=== PATIENT | female | born 1990 | race Caucasian/White ===

== ENCOUNTER → 2018-05-09 | Outpatient (CLI) | payer BC, OTHER ==
[2018-05-09 09:49] LABS: HEMOGLOBIN 10.6 G/DL (11.5-16.0)
== END ==
LOC: LAB 09:25
PROVIDERS: ATTEND Obstetrics & Gynecology
DX: Z34.02 Encounter for supervision of normal first pregnancy, second trimester (principal); Z36.89 Encounter for other specified antenatal screening
CPT/HCPCS: 36415; 82951; 82962; 85014; 85018

== ENCOUNTER 2018-08-07 19:11 | Inpatient (IN) | payer OTHER ==
[~2018-08-07] VITALS: Ht 160 cm; Wt 68.7 kg
--- NOTE | 2018-08-07 19:00 | NUR ---
CHRISTINE THOMPSON presented to unit via ambulation from home, accompanied by SO, for INDUCTION. CHRISTINE THOMPSON weighed, gowned, voided, and to bed. EFHM and TOCO applied, VS taken. CHRISTINE THOMPSON oriented to bed controls, call light, TV, heat, and A/C controls.
--- NOTE | 2018-08-07 19:17 | NUR ---
Dr. Montilla notified of pt. arrival and orders received.
[2018-08-07] MEDS ORDERED: ACYC400T PO (19:34)
[2018-08-07] MEDS ORDERED: PREN-53 PO (19:34)
[2018-08-07] MEDS ORDERED: LACTATED RINGERS 1,000 ML IV SCH (19:39)
[2018-08-07] MEDS ORDERED: D5 LR IV SOLUTION 1,000 ML IV ONE (19:41)
[2018-08-07] MEDS ORDERED: MINERAL OIL CONCENTRATE 99.9% 15 ML UDC TOP PRN (19:45)
[2018-08-07] MEDS ORDERED: MISOPROSTOL 100 MCG (CYTOTEC) TAB PO NR (19:45)
[2018-08-07 19:50] VITALS: BP 113/69
[2018-08-07] MEDS ORDERED: LACTATED RINGERS 1,000 ML IV ONE (19:57)
[2018-08-07] MEDS: D5 LR IV SOLUTION 1,000 ML IV SCH (19:59)
[2018-08-07 20:14] LABS: BASOPHILS % (AUTO) 0 % (0-10); EOSINOPHILS # (AUTO) 0.1 10^3/uL (0.0-0.3); EOSINOPHILS % (AUTO) 1 % (0-10); HEMATOCRIT 33 % (35-52); HEMOGLOBIN 11.4 G/DL (11.5-16.0); LYMPHOCYTES # (AUTO) 1.7 X 10^3 (1.0-4.0); LYMPHOCYTES % (AUTO) 12 % (12-44); MEAN CORPUSCULAR HEMOGLOBIN 32 PG (25-34); MEAN CORPUSCULAR HGB CONC 35 G/DL (32-36); MEAN CORPUSCULAR VOLUME 94 FL (80-99); MEAN PLATELET VOLUME 10.1 FL (7.4-10.4); MONOCYTES # (AUTO) 1.3 X 10^3 (0.0-1.0); MONOCYTES % (AUTO) 9 % (0-12); NEUTROPHILS % (AUTO) 77 % (42-75); PLATELET COUNT 210 10^3/uL (130-400); RED CELL DISTRIBUTION WIDTH 13.8 % (10.0-14.5); WHITE BLOOD COUNT 14.2 10^3/uL (4.3-11.0)
[2018-08-07 20:22] VITALS: BP 138/76
[2018-08-07 21:30] VITALS: BP 107/58
[2018-08-07 22:30] VITALS: BP 97/52
[2018-08-08] VITALS (55 sets, daily range): BP systolic 103–140; BP diastolic 53–100
--- NOTE | 2018-08-08 00:20 | NUR ---
Dr. Montilla notified of contraction pattern and next dose of cytotec due at this time. Orders received to hold further cytotec doses and Dr. Montilla will call in the morning to check on pt and give new orders.
[2018-08-08] MEDS: MISOPROSTOL 100 MCG (CYTOTEC) TAB PO SCH ×2 (00:27→05:10)
[2018-08-08] MEDS: D5 LR IV SOLUTION 1,000 ML IV SCH ×2 (03:24→11:20)
[2018-08-08] MEDS ORDERED: OXYTOCIN/NORMAL SALINE 500 ML IV SCH (06:07)
[2018-08-08] MEDS ORDERED: ONDANSETRON 4 MG/2 ML (SDV) Z0FRAN IVP PRN (06:15)
--- NOTE | 2018-08-08 07:15 | History & Physical-OB ---
OB - Chief Complaint & HPI Date/Time Date of Admission: Date of Admission: Aug 07, 2018 at 19:11 Date seen by a Provider: Aug 08, 2018 Time Seen by a Provider: 07:00 Chief Complaint/History OB-Reason for Admission/Chief: Induction of Labor Hx : 1 Hx Para: 0 Expected Date of Delivery: Jul 17, 2019 Gestational Age in Weeks: 38 Gestational Age in Days: 6 Admission Nurse Assessment Rev: Yes History of Labs O pos Antibody neg RI RPR NR HBsAg NR HIV NR GC neg GBS neg Allergies and Home Medications Allergies Coded Allergies: No Known Drug Allergies (Unverified , 08/07/18) Home Medications Acyclovir 400 Mg Tablet, 400 MG PO TID, (Reported) Ymc192/Iron Fumarate/FA/Dss 1 Each Tablet, 1 EACH PO DAILY, (Reported) Patient Home Medication List Home Medication List Reviewed: Yes OB - History Hx of Present Care: Yes Ultrasounds: Normal mid trimester US Obstetrical Complications: None Medical Complications: None Patient Past Medical History n/a Social History/Family History Alcohol Use: Denies Use Recreational Drug Use: No OB - Admission Exam Physical Exam Vitals: Vital Signs 08/08/18 04:00 Temp 97.8 Pulse 69 Resp 16 B/P (MAP) 129/63 (85) O2 Delivery Room Air HEENT: NCAT Heart: Rhythm Normal Lungs: Clear Abdomen: Gravid Extremities: Normal Reflexes: Normal Cervical Dilatation: 3cm Effacement: 75% Station: -1 Membranes: Intact Heart Rate: 130's Accelerations: Accelerations Present Decelerations: No Decelerations Short Term Variability: Present Museum Guide Variability: Average (6-25) Contractions on Admission: 6-10 Minutes Apart Labs Laboratory Tests Test 08/07/18 19:55 Range/Units White Blood Count 14.2 H 4.3-11.0 10^3/uL Red Blood Count 3.52 L 4.35-5.85 10^6/uL Hemoglobin 11.4 L 11.5-16.0 G/DL Hematocrit 33 L 35-52 % Mean Corpuscular Volume 94 80-99 FL Mean Corpuscular Hemoglobin 32 25-34 PG Mean Corpuscular Hemoglobin Concent 35 32-36 G/DL Red Cell Distribution Width 13.8 10.0-14.5 % Platelet Count 210 130-400 10^3/uL Mean Platelet Volume 10.1 7.4-10.4 FL Neutrophils (%) (Auto) 77 H 42-75 % Lymphocytes (%) (Auto) 12 12-44 % Monocytes (%) (Auto) 9 0-12 % Eosinophils (%) (Auto) 1 0-10 % Basophils (%) (Auto) 0 0-10 % Neutrophils # (Auto) 11.0 H 1.8-7.8 X 10^3 Lymphocytes # (Auto) 1.7 1.0-4.0 X 10^3 Monocytes # (Auto) 1.3 H 0.0-1.0 X 10^3 Eosinophils # (Auto) 0.1 0.0-0.3 10^3/uL Basophils # (Auto) 0.0 0.0-0.1 10^3/uL OB - Assessment/Plan/Diagnosis Assessment Assessment: induction of labor Admission Dx 28 yo @ 39 weeks Elective induction GBS neg Admission Status: Inpatient Order (span 2 midnights) Reason for Inpatient Admission: Induction of labor 39 weeks Plan Plan: Induction Induction Method: per Misoprostol Protocol RAMONA MOE DO Aug 08, 2018 07:15
[2018-08-08] MEDS ORDERED: SUFENTA 0.6MCG/ML BUPIVA 0.125 100 ML ONE (07:28)
--- NOTE | 2018-08-08 07:55 | NUR ---
Yonny Simpson CRNA here for epidural placement. Procedure explained, consent reviewed and signed by anesthesia. Questions answered to patient's satisfaction. Time out taken to verify correct patient/procedure. Patient up to side of bed, assisted into sitting position. Betadine prep done x3 and sterile drape applied. Local done, see anesthesia record. Test dose given, see anesthesia record for drug and dosage. Epidural catheter secured in place. Epidural placement complete. Assisted back into bed, monitors adjusted. Epidural dosed, see anesthesia record. Epidural of Sufenta/Bupvicaine @12cc/hr stated per pump. Patient tolerated procedure well.
[2018-08-08] MEDS ORDERED: LACTATED RINGERS 1,000 ML IV SCH (08:26)
[2018-08-08] MEDS ORDERED: diphenhydrAMINE 50 MG/ML INJ (BENADRYL) IV PRN (08:30)
[2018-08-08] MEDS ORDERED: EPIDURAL (SUFENTA 0.6MCG/ML BUPIVA 0.125%) 100 ML BAG EPI SCH (08:30)
[2018-08-08] MEDS ORDERED: METOCLOPRAMIDE INJ 10 MG/2 ML (REGLAN) IV PRN (08:30)
[2018-08-08] MEDS ORDERED: ONDANSETRON 4 MG/2 ML (SDV) Z0FRAN IV PRN (08:30)
[2018-08-08] MEDS ORDERED: NALOXONE 0.4 MG/ML 1 ML (NARCAN) VIAL IV PRN ×2 (08:30)
[2018-08-08] MEDS ORDERED: LIDOCAINE/EPI 2% 1:200,00 (XYLOCAINE) 10 ML VIAL ONE (13:02)
[2018-08-08] MEDS: OXYTOCIN/NORMAL SALINE 500 ML IV SCH ×2 (14:47→17:07)
[2018-08-08] MEDS ORDERED: WITCH HAZEL(TUCKS) 40 EA JAR TOP PRN (15:15)
[2018-08-08] MEDS ORDERED: BENZOCAINE/MENTHOL (DERMOPLAST) 56 ML CAN TP PRN (15:15)
[2018-08-08] MEDS: IBUPROFEN 600 MG (MOTRIN) TAB PO SCH ×2 (15:25→21:06)
--- NOTE | 2018-08-08 17:21 | OB Labor & Delivery Record ---
L&D History Date of Service Date of Service: Aug 08, 2018 History Expected Date of Delivery: Jul 17, 2019 Gestational Age in Weeks: 39 Hx : 1 Hx Para: 0 Complications Events: Routine care Operative Indications (Cesarea: N/A-Vaginal Delivery Intrapartal Events: None L&D Stage1 Stage One Onset of Labor - Date: Aug 08, 2018 Monitors and Tracing Monitor Mode: External Heart Rate: 150 Station: 0 Vital Signs VS - Last 72 Hours, by Label 08/07/18 08/07/18 08/07/18 08/07/18 19:50 20:22 21:30 22:30 Temp 99.4 Pulse 107 88 83 74 Resp 18 18 16 16 B/P (MAP) 113/69 (84) 138/76 (96) 107/58 (74) 97/52 (67) O2 Delivery Room Air Room Air Room Air Room Air 08/08/18 08/08/18 08/08/18 08/08/18 00:20 01:50 04:00 05:20 Temp 98.1 97.8 Pulse 81 78 69 68 Resp 16 16 16 16 B/P (MAP) 122/76 (91) 117/61 (79) 129/63 (85) 123/74 (90) O2 Delivery Room Air Room Air Room Air Room Air 08/08/18 08/08/18 08/08/18 08/08/18 05:50 06:40 06:55 07:10 Temp 98.2 Pulse 75 89 77 80 Resp 16 16 16 20 B/P (MAP) 124/68 (86) 127/86 (100) 126/84 (98) 133/100 (111) O2 Delivery Room Air Room Air Room Air Room Air 08/08/18 08/08/18 08/08/18 08/08/18 07:25 07:40 07:55 08:10 Pulse 77 73 74 77 Resp 20 20 20 20 B/P (MAP) 128/79 (95) 129/76 (93) 122/68 (86) 129/68 (88) O2 Delivery Room Air Room Air Room Air Room Air 08/08/18 08/08/18 08/08/18 08/08/18 08:15 08:18 08:21 08:24 Pulse 78 82 78 86 Resp 20 20 20 20 B/P (MAP) 121/63 (82) 119/65 (83) 122/58 (79) 107/62 (77) O2 Delivery Room Air Room Air Room Air Room Air 08/08/18 08/08/18 08/08/18 08/08/18 08:27 08:30 08:33 08:36 Pulse 71 68 77 69 Resp 20 20 20 20 B/P (MAP) 107/66 (80) 109/67 (81) 109/67 (81) 109/62 (78) O2 Delivery Room Air Room Air Room Air Room Air 08/08/18 08/08/18 08/08/18 08/08/18 08:39 08:42 08:45 08:48 Pulse 77 76 73 69 Resp 20 20 20 20 B/P (MAP) 105/59 (74) 109/60 (76) 111/63 (79) 106/60 (75) O2 Delivery Room Air Room Air Room Air Room Air 08/08/18 08/08/18 08/08/18 08/08/18 08:55 09:00 09:15 09:30 Temp 98.8 98.4 Pulse 76 75 69 75 Resp 18 20 20 20 B/P (MAP) 106/60 (75) 117/70 (86) 112/64 (80) 116/70 (85) O2 Delivery Room Air Room Air Room Air Room Air 08/08/18 08/08/18 08/08/18 08/08/18 09:45 10:00 10:15 10:30 Pulse 77 71 72 71 Resp 20 20 20 20 B/P (MAP) 107/60 (76) 120/75 (90) 117/69 (85) 113/68 (83) O2 Delivery Room Air Room Air Room Air Room Air 08/08/18 08/08/18 08/08/18 08/08/18 10:45 11:00 11:15 11:30 Temp 99.1 Pulse 71 68 74 72 Resp 20 18 18 18 B/P (MAP) 113/70 (84) 114/61 (78) 116/77 (90) 118/78 (91) O2 Delivery Room Air Room Air Room Air Room Air 08/08/18 08/08/18 08/08/18 08/08/18 11:45 12:00 12:15 12:30 Pulse 73 122 79 71 Resp 18 18 18 18 B/P (MAP) 118/77 (91) 138/76 (96) 116/71 (86) 111/59 (76) O2 Delivery Room Air Room Air Room Air Room Air 08/08/18 08/08/18 08/08/18 08/08/18 12:45 13:00 13:15 13:30 Pulse 90 86 77 84 Resp 18 18 18 18 B/P (MAP) 128/82 (97) 138/89 (105) 127/78 (94) 124/77 (93) O2 Delivery Non Rebreather Non Rebreather Non Rebreather Non Rebreather O2 Flow Rate 10.00 10.00 10.00 10.00 08/08/18 08/08/18 08/08/18 08/08/18 13:45 14:13 14:29 14:44 Temp 98.5 Pulse 108 83 88 78 Resp 18 18 18 18 B/P (MAP) 140/90 (107) 120/71 (87) 116/74 (88) 108/69 (82) O2 Delivery Non Rebreather Room Air Room Air Room Air O2 Flow Rate 10.00 08/08/18 08/08/18 08/08/18 08/08/18 14:58 15:14 15:29 15:44 Pulse 64 78 72 71 Resp 18 18 18 18 B/P (MAP) 115/56 (75) 119/72 (88) 130/53 (78) 131/59 (83) O2 Delivery Room Air Room Air Room Air Room Air 08/08/18 08/08/18 15:59 16:13 Temp 99.0 Pulse 78 60 Resp 18 18 B/P (MAP) 111/56 (74) 103/58 (73) O2 Delivery Room Air Room Air Rupture of Membranes Spontaneous Ruture of Membrane: Yes Amniotic Membrane Rupture Time: 0545 Amniotic Membrane Fluid Desc.: Clear Vaginal Bleeding Description: Normal Show Induction/Anesthesia Epidural Cath Placement - Time: 0809 Progress/Notes Pitocin augmentation started after SROM this AM at 0700. She progressed after epidural was placed to complete and +1 STATION L&D Stage2 Stage Two Stage II Date: Aug 08, 2018 Monitors and Tracing Monitor Mode: External Heart Rate: 150 Short Term Variability: Present Position: Right Occiput Anterior Presentation: Vertex Cord Descript/Complications Cord Vessel Description: 3 Vessels Complications nuchal cord x 1 Delivery Type Infant Delivery Method: Spontaneous Vaginal Anterior Shoulder: Right Episiotomy/Perineal Laceration Laceraction(s)/Extensions: Yes Episiotomy Description: Midline Degree (describe repair) midline episiotomy repaired using 3-0 and 2-0 vicryl suture. Condition of Delivery 1 minute Comment: 8 5 minute Comment: 9 Notes Live female weight 7lbs 9 oz. Condition of Condition of Infant: Living Exam: No Observed Abnormalities Resuscitation Resuscitation: N/A - Spontaneous Resp L&D Stage3 Stage Three Stage III Date: Aug 08, 2018 Pictocin Pitocin Administration mu/min: 8 Pitocin ml/hr: 8 Pitocin Administration Comment: 30 mu wide open at delivery of placenta Placenta Delivery Placenta Delivery: Spontaneous Delivery Summary Summary Estimated blood loss (mL): 350 Attending at delivery: Ramona Moe DO Condition of Delivery Examined: Cervix Examined, Uterus Explored Post Hemorrhage: No Condition of Mother stable Condition of (s) stable RAMONA MOE DO Aug 08, 2018 17:21
--- NOTE | 2018-08-08 17:22 | Discharge Inst-Women's Service ---
Discharge Inst-Women's Serv Depart Medication/Instructions New, Converted or Re-Newed RX: RX on Chart Final Diagnosis PPD 1 NVD Consults/Follow Up Additional Follow Up: Yes Orders/Referrals Dr. Moe in 6 weeks Activity Activity: Activity as Tolerated Driving Instructions: No Driving for 1 Week NO SMOKING: NO SMOKING Nothing Inside Vagina: No Douching, No [address], No Tampons Diet Discharge Diet: No Restrictions Symptoms to Report to : Bleeding Excessive, Pain Increased, Fever Over 101 Degrees F, Vaginal Bleeding Increase, Questions/Concerns For Any Problems or Questions: Contact Your Physician RAMONA MOE DO Aug 08, 2018 17:22
[2018-08-08] MEDS ORDERED: Benzocaine/Menthol TP (17:24)
[2018-08-08] MEDS ORDERED: IBUP-844 PO (17:24)
[2018-08-08] MEDS ORDERED: FERR325T18 PO (17:24)
[2018-08-08] MEDS ORDERED: DOCU100C37 PO (17:24)
--- NOTE | 2018-08-08 18:30 | NUR ---
FFU/2, light rubra lochia noted, no clots expressed. Pericare performed. Fresh vpad, underwear applied. Ice pack to perineum. Pt assisted to wheelchair. Pt moved along with all personal belongings to PP room 308 via wheelchair, accompanied by S.O. RN and . Pt and S.O. oriented to room and call light, packet explained. Pt reports need to void at this time. Pt assisted to bathroom, +void. Pericare demonstrated with tucks/dermoplast. Pt back to bed without incident. Linens provided to S.O. for couch. Pt and S.O. deny needs or concerns at this time.
[2018-08-08] MEDS: DOCUSATE SODIUM 100 MG (COLACE) CAP PO SCH (21:06)
[2018-08-09 02:57] VITALS: BP 116/70
[2018-08-09] MEDS: IBUPROFEN 600 MG (MOTRIN) TAB PO SCH ×4 (02:57→21:24)
[2018-08-09 05:45] VITALS: BP 99/65
[2018-08-09] MEDS: ACETAMINOPHEN 500 MG TAB (TYLENOL) PO SCH ×3 (05:46→19:51)
[2018-08-09 06:48] LABS: BASOPHILS % (AUTO) 0 % (0-10); EOSINOPHILS # (AUTO) 0.1 10^3/uL (0.0-0.3); EOSINOPHILS % (AUTO) 1 % (0-10); HEMATOCRIT 27 % (35-52); LYMPHOCYTES # (AUTO) 1.3 X 10^3 (1.0-4.0); LYMPHOCYTES % (AUTO) 9 % (12-44); MEAN CORPUSCULAR HGB CONC 34 G/DL (32-36); MEAN CORPUSCULAR VOLUME 96 FL (80-99); MONOCYTES # (AUTO) 1.2 X 10^3 (0.0-1.0); MONOCYTES % (AUTO) 8 % (0-12); NEUTROPHILS # (AUTO) 12.2 X 10^3 (1.8-7.8); NEUTROPHILS % (AUTO) 82 % (42-75); PLATELET COUNT 169 10^3/uL (130-400); WHITE BLOOD COUNT 14.9 10^3/uL (4.3-11.0)
[2018-08-09 06:50] LABS: MEAN CORPUSCULAR HEMOGLOBIN 32 PG (25-34)
--- NOTE | 2018-08-09 08:37 | Postpartum Progress Note ---
Note Note Day # 1 Subjective: Patient is without complaints. Ambulating, voiding. Tolerating a regular diet without nausea or vomiting. Normal lochia. Pain is well controlled with oral pain medications. Objective: Physical Exam: General - Alert and oriented, no apparent distress Abdomen - Soft, appropriately tender to palpation, non-distended, fundus firm at umbilicus Extremities - no edema, negative Narayan's bilaterally Assessment: PPD 1 NVD Acute blood loss anemia Plan: Routine care. Encourage breast feeding. Encourage ambulation. Ferrous sulfate supplementation. Plan for discharge today Vitals - Labs Vital Signs - I&O Vital Signs Date Time Temp Pulse Resp B/P (MAP) Pulse Ox O2 Delivery O2 Flow Rate FiO2 08/09/18 05:45 98.2 73 18 99/65 (76) 99 08/09/18 02:57 97.9 80 16 116/70 (85) 100 08/08/18 21:05 98.4 72 18 104/68 (80) 99 08/08/18 16:13 60 18 103/58 (73) Room Air 08/08/18 15:59 99.0 78 18 111/56 (74) Room Air 08/08/18 15:44 71 18 131/59 (83) Room Air 08/08/18 15:29 72 18 130/53 (78) Room Air 08/08/18 15:14 78 18 119/72 (88) Room Air 08/08/18 14:58 64 18 115/56 (75) Room Air 08/08/18 14:44 78 18 108/69 (82) Room Air 08/08/18 14:29 98.5 88 18 116/74 (88) Room Air 08/08/18 14:13 83 18 120/71 (87) Room Air 08/08/18 13:45 108 18 140/90 (107) Non Rebreather 10.00 08/08/18 13:30 84 18 124/77 (93) Non Rebreather 10.00 08/08/18 13:15 77 18 127/78 (94) Non Rebreather 10.00 08/08/18 13:00 86 18 138/89 (105) Non Rebreather 10.00 08/08/18 12:45 90 18 128/82 (97) Non Rebreather 10.00 08/08/18 12:30 71 18 111/59 (76) Room Air 08/08/18 12:15 79 18 116/71 (86) Room Air 08/08/18 12:00 122 18 138/76 (96) Room Air 08/08/18 11:45 73 18 118/77 (91) Room Air 08/08/18 11:30 72 18 118/78 (91) Room Air 08/08/18 11:15 99.1 74 18 116/77 (90) Room Air 08/08/18 11:00 68 18 114/61 (78) Room Air 08/08/18 10:45 71 20 113/70 (84) Room Air 08/08/18 10:30 71 20 113/68 (83) Room Air 08/08/18 10:15 72 20 117/69 (85) Room Air 08/08/18 10:00 71 20 120/75 (90) Room Air 08/08/18 09:45 77 20 107/60 (76) Room Air 08/08/18 09:30 75 20 116/70 (85) Room Air 08/08/18 09:15 98.4 69 20 112/64 (80) Room Air 08/08/18 09:00 75 20 117/70 (86) Room Air 08/08/18 08:55 98.8 76 18 106/60 (75) Room Air 08/08/18 08:48 69 20 106/60 (75) Room Air 08/08/18 08:45 73 20 111/63 (79) Room Air 08/08/18 08:42 76 20 109/60 (76) Room Air 08/08/18 08:39 77 20 105/59 (74) Room Air 08/08/18 08:36 69 20 109/62 (78) Room Air I & O 08/09/18 07:00 Intake Total 2400 ml Balance 2400 ml Labs Laboratory Tests 08/09/18 06:27: White Blood Count 14.9H, Red Blood Count 2.77L, Hemoglobin 9.0#L, Hematocrit 27L , Mean Corpuscular Volume 96, Mean Corpuscular Hemoglobin 32, Mean Corpuscular Hemoglobin Concent 34, Red Cell Distribution Width 14.0, Platelet Count 169, Mean Platelet Volume 10.0, Neutrophils (%) (Auto) 82H, Lymphocytes (%) (Auto) 9L , Monocytes (%) (Auto) 8, Eosinophils (%) (Auto) 1, Basophils (%) (Auto) 0, Neutrophils # (Auto) 12.2H, Lymphocytes # (Auto) 1.3, Monocytes # (Auto) 1.2H, Eosinophils # (Auto) 0.1, Basophils # (Auto) 0.0 RAMONA MOE DO Aug 09, 2018 08:37
--- NOTE | 2018-08-09 08:43 | Anesthesia-Regional Post-Op ---
Regional Patient Condition Mental Status: Alert, Oriented x3 Circulation: Same as Pre-Op Headache: Absent Sensation: Full Recovery Motor Block: Absent Post Op Complications Complications None Follow Up Care/Instructions Patient Instructions None needed. Anesthesia/Patient Condition Patient is doing well, no complaints, stable vital signs, no apparent adverse anesthesia problems. No complications reported per nursing. [place] home [place] [facility] [place]: Yes MERY ALCALA CRNA Aug 09, 2018 08:43
[2018-08-09 08:53] VITALS: BP 102/58
[2018-08-09] MEDS: DOCUSATE SODIUM 100 MG (COLACE) CAP PO SCH ×2 (08:55→21:25)
[2018-08-09] MEDS: FERROUS SULF 325 MG (IRON) TAB PO SCH (08:55)
[2018-08-09] MEDS: PRENATAL VITAMIN 1 EA TAB PO SCH (08:55)
--- NOTE | 2018-08-09 08:55 | NUR ---
Dr Montilla here to see pt, D/C orders rec'd as long as can go too. Keep overnight if baby is not dismissed.
[2018-08-09 13:35] VITALS: BP 89/52
[2018-08-09 15:30] VITALS: BP 98/61
[2018-08-09 19:50] VITALS: BP 130/75
[2018-08-10 00:15] VITALS: BP 91/52
[2018-08-10] MEDS: IBUPROFEN 600 MG (MOTRIN) TAB PO SCH ×3 (04:08→15:08)
[2018-08-10] MEDS: ACETAMINOPHEN 500 MG TAB (TYLENOL) PO SCH ×2 (04:09→15:08)
[2018-08-10 04:10] VITALS: BP 102/59
--- NOTE | 2018-08-10 07:46 | Postpartum Progress Note ---
Note Note Day # 2 Subjective: Patient is without complaints. Ambulating, voiding. Tolerating a regular diet without nausea or vomiting. Normal lochia. Pain is well controlled with oral pain medications. Objective: Physical Exam: General - Alert and oriented, no apparent distress Abdomen - Soft, appropriately tender to palpation, non-distended, fundus firm at umbilicus Extremities - no edema, negative Narayan's bilaterally Assessment: PPD 2 NVD Plan: Routine care. Encourage breast feeding. Encourage ambulation. Ferrous sulfate supplementation. Plan for discharge today Vitals - Labs Vital Signs - I&O Vital Signs Date Time Temp Pulse Resp B/P (MAP) Pulse Ox O2 Delivery O2 Flow Rate FiO2 08/10/18 04:10 98.4 70 14 102/59 (73) 99 Room Air 08/10/18 00:15 98.1 70 14 91/52 (65) 98 Room Air 08/09/18 19:50 97.7 78 18 130/75 (93) 100 Room Air 08/09/18 15:30 98.2 74 18 98/61 (73) 99 Room Air 08/09/18 13:35 98.4 78 18 89/52 (64) 99 Room Air 08/09/18 08:53 98.1 88 18 102/58 (73) 99 Room Air RAMONA MOE DO Aug 10, 2018 07:46
--- NOTE | 2018-08-10 09:07 | NUR ---
up to shower.
[2018-08-10] MEDS: DOCUSATE SODIUM 100 MG (COLACE) CAP PO SCH (09:23)
[2018-08-10] MEDS: FERROUS SULF 325 MG (IRON) TAB PO SCH (09:23)
[2018-08-10] MEDS: PRENATAL VITAMIN 1 EA TAB PO SCH (09:23)
[2018-08-10 09:25] VITALS: BP 113/70
--- NOTE | 2018-08-10 09:25 | NUR ---
initial shift assessment completed, see interventions for further. POC reviewed, states understanding.
--- NOTE | 2018-08-10 14:27 | NUR ---
called into pt's room. c/o back itching. red, raised rash noted around epidural site. pt's mother requesting medication. was called r/t pt's c/o. order received for Hydrocortisone cream.
[2018-08-10] MEDS ORDERED: HYDROCORTISONE 2.5% CREAM (ANUSOL-HC) 30 GM TOP SCH (14:30)
--- NOTE | 2018-08-10 15:06 | NUR ---
dismissal instructions given, verbalizes understanding. reviewed follow up appointment and medications. signature page signed, placed on chart.
[2018-08-10 15:15] VITALS: BP 116/69
--- NOTE | 2018-08-10 15:35 | NUR ---
pt ambulated to private vehicle with this RN, mother and infant @ side. infant secured in rear facing car seat. pt stable upon dismissal.
== END 2018-08-10 15:35 | disposition home or self-care (01) | DRG 806 ==
LOC: LDRP 19:11
PROVIDERS: ADMIT Obstetrics & Gynecology; ATTEND Obstetrics & Gynecology
PROC: 3E0DXGC Introduction of Other Therapeutic Substance into Mouth and Pharynx, External Approach (ICD-10-PCS; 2018-08-07)
PROC: 10E0XZZ Delivery of Products of Conception, External Approach (ICD-10-PCS; principal; 2018-08-08)
PROC: 0W8NXZZ Division of Female Perineum, External Approach (ICD-10-PCS; 2018-08-08)
DX: O90.81 Anemia of the puerperium (principal); D62 Acute posthemorrhagic anemia; Z37.0 Single live birth; Z3A.38 38 weeks gestation of pregnancy
CPT/HCPCS: 36415; 85025; 86850; 86900; 86901